=== PATIENT | male | born 1960 | race Caucasian/White ===

== ENCOUNTER 2022-04-06 10:53 | Emergency (ER) | payer OTHER, SELFPAY ==
[2022-04-06 11:07] VITALS: BP 165/86; PULSE 66; RESP 18; TEMP 36.9; O2SAT 97; BMI 28.5
[2022-04-06] MEDS: Lidocaine HCl 2 % MPF 5 ML VIAL SUBCUT (12:07)
--- NOTE | 2022-04-06 12:46 | ED_ITS ---
HPI - Wound/Laceration General Chief Complaint: Wound/Laceration Stated Complaint: head laceration work related Time Seen by Provider: 04/06/22 11:58 Source: patient Mode of arrival: ambulatory Limitations: no limitations History of Present Illness HPI narrative: 62 yo male with history of high cholesterol here with reports of laceration to head after running into a garage door while working. No LOC. On baby ASA 81 mg only. Denies headache, vision changes, vomiting, dizziness, neck pain. Tetanus status is up-to-date Related Data Home Medications Medication Instructions Recorded Confirmed aspirin 81 mg tablet,delayed 81 mg PO DAILY 01/18/22 release atorvastatin 40 mg tablet 40 mg PO DAILY 01/18/22 fypebnhf-bvisxgjf-mwkwe acid 400 tab PO 01/18/22 mcg-vit K 20 mcg-lycop 300 mcg tablet (One-A-Day Men's Multivitamin) Allergies Allergy/AdvReac Type Severity Reaction Status Date / Time No Known Allergies Allergy Unverified 01/18/22 15:47 [No Known Allergies*] Review of Systems Review of Systems: Yes all other systems are reviewed and are negative Constitutional: Constitutional: Reports no additional constitutional complaints, Denies body ache(s), Denies chills, Denies fever(s), Denies headache(s) and Denies weakness Eyes: Eyes: Reports no additional eye complaints and Denies change in vision ENT: Reports system reviewed and no additional complaints, except as documented, Denies dizziness, Denies headache(s), Denies nasal congestion, Denies nasal discharge and Denies neck pain Cardiovascular: Cardiovascular: Reports no additional cardiovascular complaints, Denies chest pain, Denies leg edema and Denies dyspnea Respiratory: Respiratory: Reports no additional respiratory complaints, Denies cough and Denies dyspnea Gastrointestinal: Gastrointestinal: Reports no additional gastrointestinal complaints, Denies abdominal pain, Denies diarrhea, Denies nausea and Denies vomiting Genitourinary: Genitourinary: Denies urinary incontinence Musculoskeletal: Musculoskeletal: Reports no additional musculoskeletal complaints, Denies back pain, Denies arthralgias, Denies joint swelling, Denies neck pain, Denies numbness and Denies tingling Integumentary/Breasts: Skin/Breast: Reports system reviewed and no additional complaints, except as docu and Denies rash Comments: +laceration Neurologic: Reports system reviewed and no additional complaints, except as documented, Denies Abnormal speech present, Denies dizziness, Denies headache(s), Denies numbness, Denies tingling and Denies weakness PMFSH Past Medical History Attestation statement: The following information was validated with the patient. Source: old records reviewed and nursing notes reviewed Social History Social History Patient Tobacco Use Status: Former Tobacco user Advance Directives: No Advance Directives Information Provided: No Physical Exam Vital Signs: Vital Signs: Last Vital Signs Temp 98.4 F 04/06/22 11:07 Pulse 66 04/06/22 11:07 Resp 18 04/06/22 11:07 BP 165/86 H 04/06/22 11:07 Pulse Ox 97 04/06/22 11:07 BMI result Body Mass Index 28.5 Const: General: cooperative, healthy appearing, comfortable and no acute distress Orientation/consciousness: patient oriented x3 Limitations: no limitations HEENT: Head: Yes normal to inspection Head images: 1. 1 cm [id number]-mscnppas-en bogginess or crepitus or hematoma noted Ears: hearing grossly normal bilaterally and TM's normal bilaterally General nose exam: Normal external nose present Face and sinus: Yes normal facial exam Mouth: Normal oral and palatal mucosa present Throat: Yes posterior oropharynx normal Eyes: General: appearance normal, both eyes and all related structures Pupils: Equal, round and reactive pupils present Neck: Neck: Yes normal visual inspection, Yes full ROM and Yes no lymphadeno jamar Chest: Chest palpation & inspection: normal inspection of the chest Resp: Effort & Inspection: normal respiratory effort Auscultation: clear to auscultation bilaterally Cardio: Rate: regular rate Rhythm: regular rhythm Peripheral pulses: Peripheral pulses 2+ throughout GI: Inspection: Yes normal to inspection Palpation (GI): Soft to palpation and nontender Auscultation: normal bowel sounds Back/Spine/Pelvis: Thoracic/Lumbar Spine: thoracic and lumbar spine normal to inspection Skin: General skin exam: no rashes or lesions noted Neuro: General: patient oriented x3, no focal motor deficits and normal sensation to monofilament Cranial nerves: Yes CN's II-XII intact bilaterally, Yes Equal, round and reactive pupils present, Yes Bilaterally intact EOM present, Yes Nystagmus not present, Yes Normal facial strength present and Yes Midline tongue present Cognition (Neuro): normal cognition Speech: No Abnormal speech present Gait exam (Neuro): Normal gait present Motor exam (neuro): 5/5 motor strength present throughout Sensory Exam: Normal double simultaneous stimulation for sensation Extrem: General: Yes normal to inspection Course Course Course Narrative: 62-year-old male here with laceration to the head after being struck by a garage. No complaints. No loss of conscious. Normal neurological exam. See procedure note for wound repair. Tetanus is up-to-date. Reviewed worrisome signs and symptoms of when to return to the emergency department. Comfortable discharge home. Procedures Laceration Laceration 1: Site: scalp Side (If applicable): left Size (cm): 1 Description: linear Depth: simple, single layer Local Anesthetic: lidocaine 2% Amount of anesthesia used (mL): 2 Pre-repair: wound explored Skin layer closed with: other (monofilament) Size (cm): 5-0 Number of sutures: 2 Technique: simple, interrupted Discharge Plan Discharge Clinical Impression: Laceration Patient Disposition: Home, Self-Care Instructions: Head Laceration (ED) Additional Instructions: sutures out in 5-7 days no scrubbing of the site Follow-up with work connection [id number] Prescriptions: No Action atorvastatin 40 mg tablet 40 mg PO DAILY 0RF aspirin 81 mg tablet,delayed release (DR/EC) 81 mg PO DAILY 0RF One-A-Day Men's Multivitamin 400-20-300 mcg tablet PO 0RF Referrals: Physician,Unknown J [Primary Care Provider] - Interventions: ED Discharge Assessment Last Done: 04/06/22 12:45 Discharge Date/Time: 04/06/22 12:45
== END 2022-04-06 12:45 | disposition home or self-care (01) ==
PROVIDERS: Emergency Provider Emergency Medicine
DX: S01.01XA Laceration without foreign body of scalp, initial encounter (principal); W26.9XXA Contact with unspecified sharp object(s), initial encounter; Y93.9 Activity, unspecified; Y92.9 Unspecified place or not applicable; Y99.0 Civilian activity done for income or pay; Z79.899 Other long term (current) drug therapy; Z79.82 Long term (current) use of aspirin; Z87.891 Personal history of nicotine dependence
CPT/HCPCS: 12001; 99283; 99284

== ENCOUNTER 2023-09-08 14:00 | Emergency (ER) | payer OTHER, SELFPAY ==
--- NOTE | ~2023-09-08 | XR_ITS ---
EXAMINATION: XR ANKLE, LEFT XR FOOT, LEFT CLINICAL INFORMATION: Pain and swelling. COMPARISON: None available. TECHNIQUE: AP, lateral, and mortise views of the left ankle. AP, lateral, and oblique views of the left foot. FINDINGS: Bony alignment and mineralization are normal. The ankle mortise is intact. There is marked soft tissue swelling adjacent to the lateral malleolus. There is a minimal calcification distal to the fibula, suggesting a possible ligamentous injury. No further definite fracture is seen. There is no dislocation. Boehler's angle is normal. There is a left ankle joint effusion, with anterior tear drop sign. There is no calcaneal spur. No foreign body is seen. 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 XR/XR ankle LT 2V IMPRESSION: 1. There is minimal osseous fragment adjacent to the distal fibular margin, raising the possibility of a lateral collateral ligamentous injury. There is adjacent marked soft tissue swelling. 2. A left ankle effusion is seen. 3. 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
--- NOTE | ~2023-09-08 | XR_ITS ---
EXAMINATION: XR ANKLE, LEFT XR FOOT, LEFT CLINICAL INFORMATION: Pain and swelling. COMPARISON: None available. TECHNIQUE: AP, lateral, and mortise views of the left ankle. AP, lateral, and oblique views of the left foot. FINDINGS: Bony alignment and mineralization are normal. The ankle mortise is intact. There is marked soft tissue swelling adjacent to the lateral malleolus. There is a minimal calcification distal to the fibula, suggesting a possible ligamentous injury. No further definite fracture is seen. There is no dislocation. Boehler's angle is normal. There is a left ankle joint effusion, with anterior tear drop sign. There is no calcaneal spur. No foreign body is seen. 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 XR/XR foot LT 2V IMPRESSION: 1. There is minimal osseous fragment adjacent to the distal fibular margin, raising the possibility of a lateral collateral ligamentous injury. There is adjacent marked soft tissue swelling. 2. A left ankle effusion is seen. 3. 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
[2023-09-08 14:34] VITALS: BP 176/95; PULSE 65; RESP 18; TEMP 36.4; O2SAT 98; BMI 28.5
--- NOTE | 2023-09-08 14:37 | ED.LOWEXIN ---
HPI - Extremity Injury (Lower) General Chief Complaint: Extremity Injury, Lower Stated Complaint: L foot injury Time Seen by Provider: 09/08/23 15:20 Source: patient, RN notes reviewed and old records reviewed Mode of arrival: ambulatory History of Present Illness HPI Narrative: 63-year-old male with no significant past medical history presenting to the ED complaining of left ankle pain and swelling s/p twisting after stepping on pallet around 09:00. Reports falling to ground, denies head trauma or LOC. Has been minimally ambulatory since incident. Denies numbness/tingling or injury to other area MD complaint: ankle injury and foot injury Related Data Home Medications Medication Instructions Recorded Confirmed aspirin 81 mg tablet,delayed 81 mg PO DAILY 01/18/22 05/11/22 release atorvastatin 40 mg tablet 40 mg PO DAILY 01/18/22 05/11/22 wnysurgs-vnlcivlo-bfyod acid 400 tab PO 01/18/22 05/11/22 mcg-vit K 20 mcg-lycop 300 mcg tablet (One-A-Day Men's Multivitamin) Previous Rx's Medication Instructions Recorded diclofenac sodium 75 mg 75 mg PO BID PRN pain 7 days #14 05/11/22 tablet,delayed release tabs Allergies Allergy/AdvReac Type Severity Reaction Status Date / Time No Known Allergies Allergy Verified 09/08/23 14:40 [No Known Allergies*] Review of Systems Review of Systems: Constitutional: No Fever, No Chills ENT/Mouth: No Ear Pain, No Nasal Congestion, No sore throat, No Rhinorrhea, No Swallowing Difficulty Cardiovascular: No Chest Pain, No SOB Respiratory: No Cough, No Sputum, No Wheezing Musculoskeletal: + joint pain, No Myalgias, + Joint Swelling Skin: No Skin Lesions, No rash Neuro: No Weakness, No Numbness, No Paresthesias Yes all other systems are reviewed and are negative Constitutional: Constitutional: Reports as per HPI [facility] Past Medical History Attestation statement: The following information was validated with the patient. Source: old records reviewed Social History Social History Patient Tobacco Use Status: Former Tobacco user Advance Directives: No Advance Directives Information Provided: Yes Physical Exam Vital Signs: Vital Signs: Last Vital Signs Temp 97.6 F 09/08/23 14:34 Pulse 65 09/08/23 14:34 Resp 18 10/21/23 14:34 BP 176/95 H 09/08/23 14:34 Pulse Ox 98 09/08/23 14:34 O2 Del Method Room Air 09/08/23 14:34 BMI result Body Mass Index 28.5 Const: General: cooperative, healthy appearing and no acute distress Orientation/consciousness: patient oriented x3 Limitations: no limitations HEENT: Head: Yes normal to inspection and Yes atraumatic Ears: hearing grossly normal bilaterally General nose exam: Normal external nose present Face and sinus: Yes normal facial exam Eyes: General: appearance normal, both eyes and all related structures EOM: EOMs intact bilaterally Neck: Neck: Yes normal visual inspection and Yes no meningeal signs Resp: Effort & Inspection: normal respiratory effort and no respiratory distress Cardio: Rate: regular rate Skin: Rashes: no rashes Wounds: no wounds Neuro: General: patient oriented x3, tone normal and no meningeal signs Cranial nerves: Yes CN's II-XII intact bilaterally Gait exam (Neuro): Normal gait present Extrem: Other: Left ankle and foot with noted swelling and ecchymosis to posterior region. Diffusely tender to palpation. Neurovascularly intact. ROM to ankle limited secondary to pain. Toe ROM intact. Sensation intact to light touch Knee nontender Course Course Course Narrative: This is a rapid medical exam: Additional HPI, ROS, PE not included below will be deferred to primary provider. Patient is a 63-year-old male presenting to the ED with complaint of left ankle pain and swelling. States that he mis-stepped off a pallet earlier today, but pain and swelling have increased. Tenderness to lateral malleolus, full ROM to ankle. Plan: x-ray XR ankle LT 2V/XR foot LT 2V IMPRESSION: 1. There is minimal osseous fragment adjacent to the distal fibular margin, raising the possibility of a lateral collateral ligamentous injury. There is adjacent marked soft tissue swelling. 2. A left ankle effusion is seen. 3. 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 >> Aircast applied. Patient is supplied with crutches is to follow-up with PCP/Orthopedics Results discussed with patient including worrisome signs and symptoms and strict return precautions, and when to return to the emergency department. They verbalized understanding and feel safe for discharge at this time. -patient admits he is retired however works part-time, is working Sunday through Sunday and then not again until September 19. Will need work note stating he can return September 18 Medical Decision Making Medical Decision Making MDM Narrative: 63-year-old male with no significant past medical history presenting to the ED complaining of left ankle pain and swelling s/p twisting after stepping on pallet around 09:00. On exam vital signs stable, NAD, nontoxic appearing, physical exam as noted above. Concern for ankle/foot fracture versus sprain. Low suspicion for septic joint/arthritis or gout Plan: X-rays Please refer to course for remaining clinical decision making, interpretation of labs/imaging results, and discussions with consultants and/or family members. Differential Diagnosis Differential Diagnoses: The differential diagnosis associated with the presentation includes As above Independent Interpretation I performed an independent interpretation of an: Plain X-Ray Radiology Impression Discussion of test interpretation with radiology: I have reviewed the radiologist's reading. External Record Review External record reviewed: Inpatient record, Office record, Outpatient record, Prior outpatient labs, Prior outpatient radiology, Primary care record and Outside ED record Tests considered The following testing was considered but not selected: As above Prescription Management I considered prescription management with: Pain Medication Discharge Plan Discharge Clinical Impression: Ankle sprain, Ankle effusion Patient Disposition: Home, Self-Care Instructions: Ankle Sprain (DC), Swollen Ankle Joint (ED) Additional Instructions: Your x-ray is suggestive of a lateral collateral ligamentous injury. You have marked left ankle effusion/swelling Wear Aircast for compression/disability, ice and elevate Take Tylenol and Motrin for pain/swelling Follow-up with your doctor and orthopedic Prescriptions: No Action atorvastatin 40 mg tablet 40 mg PO DAILY aspirin 81 mg tablet,delayed release (DR/EC) 81 mg PO DAILY One-A-Day Men's Multivitamin 400-20-300 mcg tablet PO diclofenac sodium 75 mg tablet,delayed release (DR/EC) 75 mg PO BID PRN (Reason: pain) 7 Days Qty: 14 0RF Referrals: [facility] [Provider Group] - 1 week Stand Alone Forms: Work/School Release
== END 2023-09-08 17:46 | disposition home or self-care (01) ==
PROVIDERS: Emergency Provider Internal Medicine
DX: S93.402A Sprain of unspecified ligament of left ankle, initial encounter (principal); W01.0XXA Fall on same level from slipping, tripping and stumbling without subsequent striking against object, initial encounter; M25.472 Effusion, left ankle; Y93.89 Activity, other specified; Y92.9 Unspecified place or not applicable; Y99.0 Civilian activity done for income or pay
CPT/HCPCS: 73600; 73620; 99283

== ENCOUNTER 2025-01-16 10:13 | Outpatient (REF) | payer MEDICARE, SELFPAY ==
--- OUTSIDE RECORDS SUMMARY | 2025-01-16 12:40 | XMS_ITS | Encounter Summary ---
Author Organization [facility] Address [address] [place] [address] Care Team Providers Care Adult And Pediatric Neurologist Name Role Phone Yang Morejon Primary Care Provider [phone] Reason for Visit * Reason Comments Foot Pain Pain in left foot (P rimary Dx);Arthritis of both feet;Dermatophytosis, nail;Pain in toes of both feet;Hammertoes of both feet * Consultation (Routine) - Closed Specialty Diagnoses / Procedures Referred By Krishan vásquez Referred To Contact Podiatry Diagnoses Metatarsalgia of right foot Sumi Rebollar PA [address] [place] [address] Phone: tel: fax: Orthopedic Surgery [address] [address] Phone: tel: fax: Referral ID Status Reason Start Date Expiration Date V isits Requested Visits Authorized [id number] Closed Specialty Services Required 10/14/2024 10/14/2025 1 1 Encounter Details Date Type Department Care Team (Latest Contact Info) Description 12/22/2024 8:15 AM EST Office Visit Orthopedic Surgery [address] [address] Tavo Flor, DPJanice [address] [address] Metatarsalgia of right foot (Primary Dx); Arthritis [...] care for your loved ones. For example, exceptional children teacher or elderly care for an [...] 1:00 PM EST Office Visit Adult Medicine [facility] [address] [place] [address] Yang Morejon PA [address] [place] [address] documented as of this encounter Visit Diagnoses [...] documented as of this encounter Care Teams Adult And Pediatric Neurologist Relationship Specialty Start Date End Date Yang Morejon PA [address] [place] [address] PCP - General Internal Medicine 10/14/24 documented as of this encounter
--- OUTSIDE RECORDS SUMMARY | 2025-01-16 12:40 | XMS_ITS | Clinical Summary ---
Author Organization [facility] [address] [place] [address] [address] [place] [address] Phone Care Team Providers Care Sales Forecast Analyst Name Role Phone Yang Morejon Primary Care Provider [phone] Allergies No known active allergies Medications aspirin [...] AM EST Office Visit Orthopedic Surgery - [address] [address] Tavo Flor DPM Metatarsalgia of [...] mucosa with minor crypt distortion VASECTOMY PROCEDURE: HI VASECTOMY UNI/BI SPX W/POSTOP SEMEN EXAMS COLONOSCOPY [...] for your loved ones. For example, child care centre manager or elderly care for an older adult? [...] 1:00 PM EST Office Visit Adult Medicine [facility] [address] [place] [address] Yang Morejon PA [address] [place] [address] Health Maintenance Due Date Last Done Comments [...] direct LDL (10/15/2024 7:56 AM EST) Pathologist [facility] Cholesterol 178 0 - 200 mg/dL LAB CHEMISTRY METHOD 10/15/2024 10:14 AM EST [facility] Triglycerides 101 0 - 150 mg/dL LAB CHEMISTRY METHOD 10/15/2024 10:14 AM EST [facility] HDL 77 >=40 mg/dL LAB CHEMISTRY METHOD 10/15/2024 10:14 AM EST [facility] LDL Calculated 81 0 - 100 mg/dL LAB CHEMISTRY METHOD 10/15/2024 10:14 AM EST [facility] VLDL Cholesterol Neto 20.2 mg/dL LAB CHEMISTRY METHOD 10/15/2024 10:14 AM EST [facility] Non HDL Chol. (LDL+VLDL) 101 <145 mg/dL LAB CHEMISTRY METHOD 10/15/2024 10:14 AM EST [facility] Chol/HDL Ratio 2.3 0.0 - 4.4 LAB CHEMISTRY METHOD 10/15/2024 10:14 AM EST [facility] Blood Venous blood specimen / Unknown Venipuncture / Unknown 10/15/2024 7:56 AM EST 10/15/2024 7:56 AM EST us Sumi Smooth HONG LAB BLOOD ORDERABLES Final Resul t [facility] [address] [place] [address], * Comprehensive metabolic panel (10/15/2024 7:56 AM EST) Sodium 143 133 - 145 mmol/L LAB CHEMISTRY METHOD 10/15/2024 10:14 AM [facility] Potassium 4.5 3.5 - 5.5 mmol/L LAB CHEMISTRY METHOD 10/15/2024 10:14 AM [facility] Chloride 108 96 - 110 mmol/L LAB CHEMISTRY METHOD 10/15/2024 10:14 AM [facility] CO2 26 21 - 32 mmol/L LAB CHEMISTRY METHOD 10/15/2024 10:14 AM [facility] Anion Gap 9 3 - 11 LAB CHEMISTRY METHOD 10/15/2024 10:14 AM [facility] Glucose 95 70 - 100 mg/dL LAB CHEMISTRY METHOD 10/15/2024 10:14 AM [facility] BUN 15 5 - 25 mg/dL LAB CHEMISTRY METHOD 10/15/2024 10:14 AM [facility] Creatinine 0.97 0.70 - 1.30 mg/dL LAB CHEMISTRY METHOD 10/15/2024 10:14 AM [facility] eGFR 87 >=60 mL/min/1. 73m2 LAB CHEMISTRY METHOD 10/15/2024 10:14 AM [facility] Comment:Calculation based on the??Chronic Kidney Disease Epidemiology Collaboration (CKD-EPI) equation refit??without adjustment for race. BUN/Creatinine Ratio 15.5 LAB CHEMISTRY METHOD 10/15/2024 10:14 AM [facility] Calcium 10.2 8.5 - 10.5 mg/dL LAB CHEMISTRY METHOD 10/15/2024 10:14 AM [facility] AST (SGOT) 25 10 - 42 unit/L LAB CHEMISTRY METHOD 10/15/2024 10:14 AM [facility] ALT (SGPT) 41 10 - 60 unit/L LAB CHEMISTRY METHOD 10/15/2024 10:14 AM [facility] Alkaline Phosphatase 84 42 - 121 unit/L LAB CHEMISTRY METHOD 10/15/2024 10:14 AM EST [facility] Total Protein 7.1 6.0 - 8.0 g/dL LAB CHEMISTRY METHOD 10/15/2024 10:14 AM EST [facility] Albumin 4.3 3.2 - 5.0 g/dL LAB CHEMISTRY METHOD 10/15/2024 10:14 AM EST [facility] Total Bilirubin 0.8 0.0 - 1.4 mg/dL LAB CHEMISTRY METHOD 10/15/2024 10:14 AM EST [facility] Blood Venous blood specimen / Unknown Venipuncture / Unknown 10/15/2024 7:56 AM EST 10/15/2024 7:56 AM EST Sumi Smooth PA LAB BLOOD ORDERABLES Final Resul t [facility] [address] [place] [address], [place] [phone] * Hepatitis C Screening (04/03/2023) Hepatitis C Screening Abstracted Historical Provider MD HEALTH MAINTENANCE Final Result from Last 3 Months or Most Recently Relevant to Health Maintenance Insurance MEDICARE [facility] Care Teams Sales Forecast Analyst Relationship Specialty Start Date End Date Yang Morejon PA [address] [place] [address] PCP - General Internal Medicine 10/14/24
[2025-01-16 14:25] LABS: Influenza A PCR NEGATIVE (Negative); Influenza B PCR NEGATIVE (Negative); Resp Syncy Virus RNA Qual PCR NEGATIVE (Negative); SARS COV2 PCR INHOUSE NEGATIVE (Negative)
== END 2025-01-16 10:14 | disposition home or self-care (01) ==
LOC: HO.LAB 10:13
PROVIDERS: Visit Provider Physician Assistant
DX: R09.89 Other specified symptoms and signs involving the circulatory and respiratory systems (principal); R50.9 Fever, unspecified; R68.89 Other general symptoms and signs
CPT/HCPCS: 0241U; 99202

== ENCOUNTER 2025-01-16 10:13 | Outpatient (AMB) | payer MEDICARE, SELFPAY ==
--- NOTE | 2025-01-16 10:31 | AM.OFFWIN_ITS ---
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 - Symptom onset was several days ago wit h chills, high fever with TMax 102F, and body aches. - Fever responded to Tylenol, with inter mittent improvement and recurrence. - Cough productive of mucus, absent sign ificant congestion initially. - Eye crusting noted upon waking the pre vious morning; ability to see improved after washing. - Mild wheezing when supine, no signific ant dyspnea. - No sinus pressure or ear discomfort no micheline. - Received influenza vaccine this year. Physical Exam General: Cooperative, healthy appearing, comfortable and no acute distress Orientation/consciousness: Patient oriented x3 Limitations: No limitations Head: Normal to inspection Ears: Hearing grossly normal bilaterally, external ears normal and TM's normal bilaterally Nose: Normal external nose present, Normal nares present and No nasal discharge present Face and sinus: Normal facial exam and Yes sinuses nontender Mouth: Normal oral and palatal mucosa present and moist mucous membranes Throat: Yes tonsils normal, Yes uvula midline. Posterior oropharynx erythema Eyes: Appearance normal, both eyes and all related structures Neck: Normal visual inspection Respiratory: Clear to auscultation bilaterally. Normal respiratory effort, able to speak in complete sentences, Actively coughing, no respiratory distress, not tachypneic, no tripod positioning and no use of accessory muscles Cardiovascular: Regular rate and rhythm. Normal S1 and S2 Skin: No rashes or lesions noted Neuro: Patient oriented x3 Extremities: Normal to inspection and Yes no clubbing, cyanosis or edema PFSH Social History Patient Tobacco Use Status: Former Tobacco user Review of Systems Const All systems reviewed & are unremarkable except as noted in HPI and below Physical Exam Vital Signs: Last Vital Signs Temp 98.1 F 01/16/25 10:35 Pulse 86 01/16/25 10:35 BP 132/80 01/16/25 10:35 Pulse Ox 96 01/16/25 10:35 Oxygen Delivery Method Room Air 01/16/25 10:35 BMI result Body Mass Index 29.2 Assessment & Plan Assessment & Plan (1) Flu-like symptoms: Code(s): R68.89 - Other general symptoms and signs Plan: VSS, pt well appearing and PE unremarkable. The patient was evaluated for influenza-like symptoms and conjunctivitis, with nasal swabs for influenza, COVID-19, and RSV pending results. Advised to manage fever and body aches with Tylenol, while adhering to safe dosage limits, and to continue symptomatic relief through hydration with hot fluids. Given the viral presentation, antibiotics were not indicated, and the patient was informed of the flu's contagiousness. Await further instructions upon swab test results with necessary follow-up communication planned upon availability. Patient was informed and verbally consented to the use of an ambient scribe for clinic note documentation during this visit Orders: Orders SARS-CoV2/FLU/RSV Today R09.89 - Other specified symptoms and signs involving the circulatory and respiratory systems Coding Level of Care Code New Pt Level 3 (63137) Diagnoses Flu-like symptoms R68.89
[2025-01-16 10:35] VITALS: BP 132/80; PULSE 86; TEMP 36.7; O2SAT 96; BMI 29.2
--- OUTSIDE RECORDS SUMMARY | 2025-01-16 11:24 | XMS_ITS | Encounter Summary ---
Author Organization [facility] Address [address] [place] [address] Care Team Providers Care Inside Account Executive Name Role Phone Yang Morejon Primary Care Provider [phone] [phone] Reason for Visit * Reason Comments Foot Pain Pain in left foot (P rimary Dx);Arthritis of both feet;Dermatophytosis, nail;Pain in toes of both feet;Hammertoes of both feet * Consultation (Routine) - Closed Specialty Diagnoses / Procedures Referred By Krishan vásquez Referred To Contact Podiatry Diagnoses Metatarsalgia of right foot Sumi Rebollar PA [address] [place] [address] Phone: tel: fax: Orthopedic Surgery [address] [address] Phone: tel: fax: Referral ID Status Reason Start Date Expiration Date V isits Requested Visits Authorized [id number] Closed Specialty Services Required 10/14/2024 10/14/2025 1 1 Encounter Details Date Type Department Care Team (Latest Contact Info) Description 12/22/2024 8:15 AM EST Office Visit Orthopedic Surgery [address] [address] Tavo Flor, DPJanice [address] [address] Metatarsalgia of right foot (Primary Dx); Arthritis of both feet; Interdigital neuroma of right foot Social History Tobacco Use Types Packs/Day Years Used Date Smoking Tobacco: Former Cigarettes Q uit: 11/18/1990 Smokeless Tobacco: Former Tobacco Cessation:Counseling Given: Not Answered Alcohol Use Standard Drinks/Week Comments Yes 0 (1 standard drink = 0.6 oz pur e alcohol) Housing Instability Answer Date Recorde d Are you worried that in the next 2 months you may not have stable housing? No 10/09/2024 Food Access & Nutrition Answer Date Rec orded Do you have access to a vari ety of food including fruits and vegetables? Yes 10/09/2024 Access to Healthcare Answer Date Record ed Within the last 3 months, ho w many times did you visit the emergency department for your medical care? 0 10/09/2024 Health Literacy Answer Date Recorded How often do you need to hav e someone help you when you read instructions, pamphlets, or other written material from your doctor or pharmacy? Never 10/09/2024 Caregiver: How often do you need to have someone help you when you read instructions, pamphlets, or other written material from your doctor or pharmacy? Not on file 10/09/2024 Financial Risk Answer Date Recorded How hard is it for you to pa y for the very basics like food, housing, medical care, and air conditioning / heating? Not very hard 10/09/2024 Transportation Answer Date Recorded Has the lack of transportati on kept you from meetings, work, or from getting things needed for daily living? No Has the lack of transportati on kept you from medical appointments or from getting medications? No 10/09/2024 Social Isolation Answer Date Recorded How often do you feel lonely or isolated from those around you? Sometimes 10/09/2024 Food Risk Answer Date Recorded Within the past 12 months we worried whether our food would run out before we got money to buy more. Never true 10/09/2024 Within the past 12 months th e food we bought just didn't last and we didn't have money to get more. Never true 10/09/2024 Dependent Care Answer Date Recorded Do you need help finding or paying for care for your loved ones. For example, children teacher or elderly care for an older adult? No 10/09/2024 Education Answer Date Recorded Do you think completing more education or training, like finishing a GED, going to college, or learning a trade, would be helpful for you? No 10/09/2024 Employment and Income Answer Date Recor ded During the last four weeks, have you been actively looking for work? No 10/09/2024 Living Situation Answer Date Recorded What is your living situation? 1 12/09/2023 Sex and Gender Information Value Date Recorded Sex Assigned at Not on file Legal Sex Male 12:37 PM EST Gender Identity Not on file Sexual Orientation Not on file documented as of this encounter Last Filed Vital Signs Vital Sign Reading Time Taken Comments Blood Pressure - - Pulse - - Temperature - - Respiratory Rate - - Oxygen Saturation - - Inhaled Oxygen Concentration - - Weight 98 kg (216 lb) 12/22/2024 7:57 AM EST Height 182.9 cm (6' 0.01 ) 12/22/2024 7:57 AM ES T Body Mass Index 29.29 12/22/2024 7:57 AM EST documented in this encounter Progress Notes * Tavo Flor DPM - 12/22/2024 8:15 AM EST Referring MD: Sumi Rebollar PA Last PCP visit: 10/14/2024 IDENTIFIER: @TITLE@ Marco A is a 64 y.o. year old male who presents for consultation. CC: Right foot pain HPI: 64-year-old male presents office chief complaint of right foot pain. Patient notes that he has had consistent throbbing pain in the right great toe area. Patient notes that it was worse during the summertime of the fall but recently over the last 2 months it seems to have gone down. Patient notes that he has not changed his shoe and does not have did not have any trauma to the foot. Patient is here for evaluation treatment ROS: GENERAL: Pt denies nausea, fever, vomiting, chills, or shortness of breath. Pt in NAD. CARDIOLOGY: pt denies chest pain, palpitations LUNGS: pt denies shortness of breath MUSCULOSKELETAL: See HPI, otherwise no joint pain or swelling, back pain, or muscle pain. SKIN: see HPI, otherwise no lesions, rash or itching NEURO: No persistent headache, weakness or numbness The remainder of the review of systems is noncontributory PAST MEDICAL HISTORY: Patient Active Problem List Diagnosis Allergic rhinitis Mixed hyperlipidemia Obesity, unspecified Onychomycosis Primary hypertension Primary insomnia SOCIAL HISTORY: Social History Tobacco Use Smoking status: Former Current packs/day: 0.00 Types: Cigarettes Quit date: 11/18/1990 Years since quittin.1 Smokeless tobacco: Former Substance Use Topics Alcohol use: Yes ACTIVE MEDICATIONS: Outpatient Medications Marked as Taking for the 12/22/24 encounter (Office Visit) with Tavo Flor DPM Medication Sig Dispense Refill aspirin 81 mg chewable tablet 1 TABLET DAILY atorvastatin (LIPITOR) 40 mg tablet Take 1 tablet (40 mg total) by mouth 1 (one) time each day. 90 tablet 1 losartan (COZAAR) 100 mg tablet Take 1 tablet (100 mg total) by mouth 1 (one) time each day. 90 tablet 1 MULTIVITAMIN ORAL 1 tab daily ALLERGIES: @ALL@ PHYSICAL EXAM: Height 1.829 m (72.01 ), weight 98 kg (216 lb). PODIATRIC EXAMINATION: GENERAL: Patient appears well nourished, with NAD. VASCULAR: Dorsalis pedis pulses are 2/4 bilaterally and Posterior tibial pulses are 2/4 bilaterally. Capillary filling time within normal limits the digits. No pallor on elevation or rubor on dependency. Positive hair growth. No varicosities. Denies rest pain or claudication pain. NEUROLOGICAL: Sharp/dull sensation intact, protective sensation intact 10/10 with 5.07 semmes reddy bilaterally, vibratory sensation with tuning fork intact to the tibial tuberosity. ORTHOPEDIC: Good muscle strength 5/5 of all flexors and extensors. Dorsi flexion of ankle ,10 degrees, plantar flexion WNL. No muscle atrophy. Arthritic changes of the first metatarsal cuneiform joint with exostosis and rigidity on range of motion. Metatarsal pain with increased palpation pain to the second metatarsal head. Increased pain to the first interspace. Contractures of digits 2 through 5 . DERMATOLOGICAL:.No masses or skin lesions noted. Normal skin temperature, normal skin turgor. BIOMECHANICS: STJ ROM wnl, MTJ ROM wnl, 1st MPJ ROM wnl. IMAGING: No fractures or dislocations. Increased sclerosis and arthritic change of the midfoot. Contractures of digits 2 through 5. IMPRESSION: 1. Metatarsalgia of right foot 2. Arthritis of both feet 3. Interdigital neuroma of right foot PLAN: Pt was seen and examined, history reviewed. Patient with symptoms of arthritic pain in the pedal joints. Patient showed good understanding of etiology of arthritis. Patient is aware that conservative options include padding, over the counter products, orthotics, and shoes. Patient aware that they are other treatments available such as oral anti- inflammatories, injections, and steroid dose packs. Patient understands that these measures are conservative measures to help handle the osteoarthritic flares. Patient with mild complaints of discomfort to the balls of their feet. Radiograph and clinical examconfirm that its likely secondary to fat pad atrophy. Patient would benefit from additional cushionto help redistribute the pressure to the central portion of the foot. Patient shown different offloading measures (metatarsal pads). Patient with symptoms of diffuse pain to sole of foot, likely neuroma-type pain, exacerbated by contracted hammertoe deformities and arthritic changes. Conservative treatment options discussed. Recommend metatarsal pad addition to midfoot to aid in metatarsal head excursion and relief of pressure on interdigital nerves. Patient right foot placed in metatarsal pad accompanied by strapping. Patientis to keep the strapping intact for the next week. Patient to keep the tape dry and leave on for aslong as possible. Patient instructed to wear supportive shoe gear throughout the next week to allow for better stability. Patient is to pay attention to the difference in the foot with the strapping. If improvement noted,patient may benefit from custom inserts with metatarsal pad additions. Tavo Flor DPM cc: Sumi Rebollar PA documented in this encounter Plan of Treatment Upcoming Encounters Date Type Department Care Team (Late st Contact Info) Description 11/09/2025 1:00 PM EST Office Visit Adult Medicine [facility] [address] [place] [address] Yang Morejon PA [address] [place] [address] documented as of this encounter Visit Diagnoses Diagnosis Metatarsalgia of right foot- Primary Arthritis of both feet Interdigital neuroma of right foot documented in this encounter Orders Outpatient Referral Count Last Ordered Date Fir st Ordered Date AMB REFERRAL TO PODIATRY 1 12/22/2024 documented in this encounter Additional Health Concerns Assessment Noted Time PHQ-9 Depression Total Score: 1 10/09/20 24 9:52 AM EST documented as of this encounter Care Teams Inside Account Executive Relationship Specialty Start Date End Date Yang Morejon PA [address] [place] [address] PCP - General Internal Medicine 10/14/24 documented as of this encounter
--- OUTSIDE RECORDS SUMMARY | 2025-01-16 11:24 | XMS_ITS | Clinical Summary ---
Author Organization [facility] [address] [place] [address] Address [address] [place] [address] Phone Care Team Providers Care Clinical Education Assistant Name Role Phone Yang Morejon Primary Care Provider [phone] [phone] Allergies No known active allergies Medications aspirin 81 mg chewable tablet 1 TABLET DAILY Active MULTIVITAMIN ORAL 1 tab daily Active losartan (COZAAR) 100 mg tablet Take 1 tablet (100 mg total) by mouth 1 (one) time each day. 90 tablet 1 10/14/2024 Active atorvastatin (LIPITOR) 40 mg tablet Take 1 tablet (40 mg total) by mouth 1 (one) time each day. 90 tablet 1 10/14/2024 Active Active Problems Problem Noted Date Diagnosed Date Primary hypertension 11/08/2022 Onychomycosis 10/11/2022 Primary insomnia 10/18/2017 Obesity, unspecified 06/12/2011 Allergic rhinitis 05/07/2006 Overview (08/14/2024): Previously was on allergy injections Mixed hyperlipidemia 05/07/2006 Encounters Date Type Department Care Team Description 12/22/2024 8:15 AM EST Office Visit Orthopedic Surgery - [address] [address] Tavo Flor DPM Metatarsalgia of right foot (Primary Dx); Arthritis of both feet; Interdigital neuroma of right foot from Last 3 Months Immunizations Name Administration Dates Next Due Influenza Quadravalent, MDCK , 0.5ml, preservative free (Flucelvax) 6mo and older 08/18/2021,08/24/2019,09/09/2018 Influenza trivalent, with preservative (Fluzone; Afluria) 6mo and older 08/16/2022,08/27/2020,09/18/2017,2015 Influenza, Unspecified 10/15/2023 Moderna (age 6mo & older) Bi valent, COVID-19, 0.5 mL or 0.25 mL dosage 04/30/2023 Pfizer (ages 12 & older) Biv alent, COVID-19 08/16/2022 Pfizer SARS-CoV-2 COVID-19, mRNA, LNP-S, preservative free 10/15/2023 RSV, bivalent, protein subun it RSVpreF, 0.5mL, Preservative Free (Arexvy) 60yo and older 10/15/2023 Td Tetanus diptheria (Tdvax) 7yo and older 06/03/2018,10/18/2017,11/19/1997 Tdap Tetanus diptheria acell ular pertussis (Boostrix; Adacel) 7yo and older 05/11/2022,05/09/2007 Zoster recombinant (Shingrix ) 19yo and older 01/23/2020 Surgical History Surgery Date Site/Laterality Comments OTHER SURGICAL HISTORY Left PROCEDURE: HISTORY OTHER; COMMENT: previous patellar surgery 1974 COLONOSCOPY 07/20/09 PROCEDURE: HISTORICAL COLONOSCOPY; COMMENT: Up to cecum, good preparation, sigmoid polyp removed:No adenoma, polypoid colonic mucosa with minor crypt distortion VASECTOMY PROCEDURE: NM VASECTOMY UNI/BI SPX W/POSTOP SEMEN EXAMS COLONOSCOPY 2019 PROCEDURE: HISTORICAL COLONOSCOPY; COMMENT: pos polyps due in 2024 for next CN Medical History Medical History Date Comments Allergic rhinitis, cause unspecified 05/07/2006 DX:Allergic rhinitis, cause unspecified Obesity, unspecified 06/12/2011 DX:Obesity, unspecified Anal fissure 09/2016 DX:Anal fissure Actinic keratosis, hx of DX:Acti shaniqua keratosis, hx of Family History Medical History Relation Name Comments Other: Waldenstrom's lymphoma Father basal cell skin ca, ?CAD, TIA Other: arteriosclerosis Maternal Grandfather in his early 70s Other: cancer,other Maternal Grandmother in her 80s ? cause Other: Other Mother well at age 91 Stroke Paternal Grandfather at age 92 Breast cancer Paternal Grandmother a t age 96; bilateral Relation Name Status Comments Brother 1 Alive Brother 2 Alive Father waldenstroms ma croglobulemia Maternal Grandfather Maternal Grandmother Mother Alive Paternal Grandfather Paternal Grandmother Sister 1 Alive Sister 2 Alive Social History Tobacco Use Types Packs/Day Years [...] Record ed Within the last 3 months, [place] many times did you visit the emergency [...] care for your loved ones. For example, child monitor or elderly care for an older adult? [...] on file Sexual Orientation Not on file Obstetrics History Last Filed Vital Signs Vital Sign Reading Time Taken Comments Blood Pressure 118/70 10/14/2024 9:34 AM EST Pulse 64 10/14/2024 9:34 AM EST Temperature 36.1 ??C (96.9 ??F) 10/14/2024 9:34 AM ES T Respiratory Rate 16 10/14/2024 9:34 AM EST Oxygen Saturation - - Inhaled Oxygen Concentration - - Weight 98 kg (216 lb) 12/22/2024 7:57 AM EST Height 182.9 cm (6' 0.01 ) 12/22/2024 7:57 AM ES T Body Mass Index 29.29 12/22/2024 7:57 AM EST Plan of Treatment Upcoming Encounters Date Type Department Care Team (Late st Contact Info) Description 11/09/2025 1:00 PM EST Office Visit Adult Medicine [facility] [address] [place] [address] Yang Morejon PA [address] [place] [address] Health Maintenance Due Date Last Done Comments Zoster Vaccines (2 of 2) 03/19/2020 01/23/2020 Abdominal Aortic Aneurysm (AAA) Screen 10/27/2022 Medicare Annual Wellness Visit 10/27/2022 Colorectal Cancer Screening: Colonoscopy 05/15/2025 06/01/2020 Depression Screening 10/09/2025 10/09/2024 Social Influencers of Health Screening 10/09/2025 10/09/2024 Falls Risk Assessment 10/14/2025 10/14/2024 Hypertension/CHF/CAD Annual BMP Blood Test 10/15/2025 10/15/2024, 10/25/2023 Cholesterol Screening (Lipid Panel) 10/15/2029 10/15/2024, 10/25/2023 DTaP,Tdap,and Td Vaccines (6 - Td or Tdap) 05/11/2032 05/11/2022, 06/03/2018, 10/18/2017, Additional history exists Hepatitis C Screening Completed 04/03/2023 RSV Immunization Patients 60+ Years Old Completed 10/15/2023 COVID-19 Vaccine Completed 09/02/2024, , 10/15/2023, Additional history exists Influenza Vaccine Completed 09/02/2024, , 10/15/2023, Additional history exists Pneumococcal Vaccine: 50+ Years Completed 09/02/2024 Pneumococcal Vaccine: Pediatrics (0 to 5 Years) and At-Risk Patients (6 to 64 Years) Aged Out 09/02/2024 No longer eligible based on patient's age to complete this topic HIB Vaccines Aged Out No longer eligi ble based on patient's age to complete this topic HPV Vaccines Aged Out No longer eligi ble based on patient's age to complete this topic Hepatitis A Vaccines Aged Out No long er eligible based on patient's age to complete this topic Hepatitis B Vaccines Aged Out No long er eligible based on patient's age to complete this topic IPV Vaccines Aged Out No longer eligi ble based on patient's age to complete this topic MMR Vaccines Aged Out No longer eligi ble based on patient's age to complete this topic Meningococcal ACWY Vaccine Aged Out N o longer eligible based on patient's age to complete this topic Meningococcal B Vacine Aged Out No lo nger eligible based on patient's age to complete this topic RSV Immunization Patients Under 20 months Aged Out No longer eligible based on patient's age to complete this topic Varicella Vaccines Aged Out No longer eligible based on patient's age to complete this topic Procedures Procedure Name Priority Date/Time Associated Diagnosis Comments COMPREHENSIVE METABOLIC PANEL Routine 10/15/2024 7:56 AM EST Primary hypertension LIPID PANEL WITH REFLEX TO DIRECT LDL Routine 10/15/2024 7:56 AM EST Mixed hyperlipidemia HEPATITIS C SCREENING Routine 04/03/2023 from Last 3 Months or Most Recently Relevant to Health Maintenance Results * Lipid panel with reflex to direct LDL (10/15/2024 7:56 AM EST) Pathologist [facility] Cholesterol 178 0 - 200 mg/dL LAB CHEMISTRY METHOD 10/15/2024 10:14 AM EST [facility] Triglycerides 101 0 - 150 mg/dL LAB CHEMISTRY METHOD 10/15/2024 10:14 AM EST [facility] HDL 77 >=40 mg/dL LAB CHEMISTRY METHOD 10/15/2024 10:14 AM EST [facility] LDL Calculated 81 0 - 100 mg/dL LAB CHEMISTRY METHOD 10/15/2024 10:14 AM EST [facility] VLDL Cholesterol Neto 20.2 mg/dL LAB CHEMISTRY METHOD 10/15/2024 10:14 AM EST [facility] Non HDL Chol. (LDL+VLDL) 101 <145 mg/dL LAB CHEMISTRY METHOD 10/15/2024 10:14 AM EST [facility] Chol/HDL Ratio 2.3 0.0 - 4.4 LAB CHEMISTRY METHOD 10/15/2024 10:14 AM EST [facility] Blood Venous blood specimen / Unknown Venipuncture / Unknown 10/15/2024 7:56 AM EST 10/15/2024 7:56 AM EST us Sumi Smooth HONG LAB BLOOD ORDERABLES Final Resul t [facility] [address] [place] [address], * Comprehensive metabolic panel (10/15/2024 7:56 AM EST) Sodium 143 133 - 145 mmol/L LAB CHEMISTRY METHOD 10/15/2024 10:14 AM [facility] Potassium 4.5 3.5 - 5.5 mmol/L LAB CHEMISTRY METHOD 10/15/2024 10:14 AM [facility] Chloride 108 96 - 110 mmol/L LAB CHEMISTRY METHOD 10/15/2024 10:14 AM [facility] CO2 26 21 - 32 mmol/L LAB CHEMISTRY METHOD 10/15/2024 10:14 AM [facility] Anion Gap 9 3 - 11 LAB CHEMISTRY METHOD 10/15/2024 10:14 AM [facility] Glucose 95 70 - 100 mg/dL LAB CHEMISTRY METHOD 10/15/2024 10:14 AM [facility] BUN 15 5 - 25 mg/dL LAB CHEMISTRY METHOD 10/15/2024 10:14 AM [facility] Creatinine 0.97 0.70 - 1.30 mg/dL LAB CHEMISTRY METHOD 10/15/2024 10:14 AM [facility] eGFR 87 >=60 mL/min/1. 73m2 LAB CHEMISTRY METHOD 10/15/2024 10:14 AM [facility] Comment:Calculation based on the??Chronic Kidney Disease Epidemiology Collaboration (CKD-EPI) equation refit??without adjustment for race. BUN/Creatinine Ratio 15.5 LAB CHEMISTRY METHOD 10/15/2024 10:14 AM [facility] Calcium 10.2 8.5 - 10.5 mg/dL LAB CHEMISTRY METHOD 10/15/2024 10:14 AM [facility] AST (SGOT) 25 10 - 42 unit/L LAB CHEMISTRY METHOD 10/15/2024 10:14 AM [facility] ALT (SGPT) 41 10 - 60 unit/L LAB CHEMISTRY METHOD 10/15/2024 10:14 AM [facility] Alkaline Phosphatase 84 42 - 121 unit/L LAB CHEMISTRY METHOD 10/15/2024 10:14 AM EST [facility] Total Protein 7.1 6.0 - 8.0 g/dL LAB CHEMISTRY METHOD 10/15/2024 10:14 AM EST [facility] Albumin 4.3 3.2 - 5.0 g/dL LAB CHEMISTRY METHOD 10/15/2024 10:14 AM EST [facility] Total Bilirubin 0.8 0.0 - 1.4 mg/dL LAB CHEMISTRY METHOD 10/15/2024 10:14 AM EST [facility] Blood Venous blood specimen / Unknown Venipuncture / Unknown 10/15/2024 7:56 AM EST 10/15/2024 7:56 AM EST Sumi Smooth PA LAB BLOOD ORDERABLES Final Resul t [facility] [address] [place] [address], [place] [phone] * Hepatitis C Screening (04/03/2023) Hepatitis C Screening Abstracted Historical Provider MD HEALTH MAINTENANCE Final Result from Last 3 Months or Most Recently Relevant to Health Maintenance Insurance MEDICARE [facility] Care Teams Clinical Education Assistant Relationship Specialty Start Date End Date Yang Morejon PA [address] [place] [address] PCP - General Internal Medicine 10/14/24
== END 2025-01-16 11:10 | disposition home or self-care (01) ==
PROVIDERS: Visit Provider Physician Assistant
DX: R68.89 Other general symptoms and signs (principal)